=== PATIENT | female | born 1950 | race Two or more races ===

== ENCOUNTER 2020-07-26 14:17 | Inpatient (IN) | payer OTHER ==
[~2020-07-26] VITALS: Ht 157.5 cm; Wt 61.2 kg
[2020-08-16] MEDS ORDERED: PLETAL PO (08:35)
[2020-08-16] MEDS ORDERED: MIRAPEX0.25 MG PO (08:36)
[2020-08-16] MEDS ORDERED: GRALISE600 MG PO (08:37)
[2020-08-16] MEDS ORDERED: PREVACID30 MG PO (08:37)
[2020-08-16] MEDS ORDERED: CYMBALTA PO (08:38)
[2020-08-16] MEDS ORDERED: VITAMIN D-40010 MCG PO (08:38)
[2020-08-23] MEDS ORDERED: IRBESARTAN300 MG (07:57)
[2020-08-23] MEDS ORDERED: VALACYCLOVIR1000 MG (07:57)
[2020-08-23] MEDS ORDERED: DOXAZOSIN MESYLA4 MG (07:57)
[2020-08-23] MEDS ORDERED: LATANOPROST2.5 ML (07:57)
[2020-08-23] MEDS ORDERED: CILOSTAZOL100 MG (07:59)
[2020-08-23] MEDS ORDERED: DULOXETINE HCL30 MG (07:59)
[2020-08-23] MEDS ORDERED: COLACE100 MG PO (09:47)
[2020-08-23] MEDS ORDERED: PERCOCET 5-3251 EACH PO (09:47)
[2020-08-23] MEDS ORDERED: DIAZEPAM5 MG PO (09:47)
== END 2020-08-24 12:32 | disposition home or self-care (01) | DRG 473 ==
LOC: SURH 08-23 04:45 → O/R 08-23 04:45 → SURH 08-23 07:45
PROVIDERS: ADMIT Orthopaedic Surgery Orthopaedic Surgery of the Spine; ATTEND Orthopaedic Surgery Orthopaedic Surgery of the Spine
PROC: XRG20F3 Fusion of 2 or more Cervical Vertebral Joints using Radiolucent Porous Interbody Fusion Device, Open Approach, New Technology Group 3 (ICD-10-PCS; 2020-08-23)
PROC: 07DS3ZZ Extraction of Vertebral Bone Marrow, Percutaneous Approach (ICD-10-PCS; 2020-08-23)
PROC: 0RT30ZZ Resection of Cervical Vertebral Disc, Open Approach (ICD-10-PCS; principal; 2020-08-23 10:00)
DX: M50.021 Cervical disc disorder at C4-C5 level with myelopathy (principal); M48.02 Spinal stenosis, cervical region